=== PATIENT | male | born 1945 | race Caucasian/White ===

== ENCOUNTER → 2018-03-24 | Outpatient (CLI) | payer MEDICARE, OTHER ==
[~2018-03-24] MED LIST: ACET325 PO; AMIO200 PO; AMLO5 PO; ASPI325 PO; Atenolol50 MG PO; Coreg12.5 MG PO; Depo-Testo100 MG/1 M; Depo-Testos200 MG/ML IM; ENOX100I SQ; HYDACE10B PO; LOSA25 PO; LOSARTAN-HCTZ1 EAC1 PO; METO100ER PO; METO50ER PO; OMEP20ER PO; Omeprazole20 M1 PO; PIROXICAM PO; PRAV20 PO; Pravachol80 MG PO; Pravastatin Sod40 MG PO; Prilosec20 MG PO; TESTOSTERO200 MG/1 M INJ; TESTOSTERON CYP; WARF4; WARF5 PO
== END | disposition home or self-care (01) ==
LOC: LAB SHORT 10:50 → PLD 10:50
DX: D04.4 Carcinoma in situ of skin of scalp and neck (principal); L81.4 Other melanin hyperpigmentation
CPT/HCPCS: 88305

== ENCOUNTER 2018-10-02 11:42 | Day surgery (SDC) | payer MEDICARE, OTHER ==
[~2018-10-02] VITALS: Ht 182.9 cm; Wt 106.8 kg
[2018-10-02] MEDS ORDERED: Testostero100 MG/1 M IM (12:17)
--- NOTE | 2018-10-02 16:08 | NUR ---
10/02/18 1601 Kavita Woo OPA 10 WAS PLACED WITHOUT DIFFICULTY
--- NOTE | 2018-10-02 16:09 | NUR ---
10/02/18 1609 Kavita Woo LATE ENTRY----DISCUSSION WAS HAD WITH PATIENT AND NURSE SEDATION WAS AN OPTION AND DISCUSSED THIS WITH HIM. ALL HIS QUESTIONS WERE ANSWERED AND PATIENT CHOSE NURSE SEDATION. DR VARGAS DISCUSSED THIS WITH ME AND CASE PROCEEDED WITH RN SEDATION
== END 2018-10-02 14:12 | disposition home or self-care (01) ==
LOC: ORSCSDS 11:42
PROVIDERS: Internal Medicine Gastroenterology
PROC: 0DBL8ZX Excision of Transverse Colon, Via Natural or Artificial Opening Endoscopic, Diagnostic (ICD-10-PCS; principal; 2018-10-02 13:00)
DX: Z12.11 Encounter for screening for malignant neoplasm of colon (principal); Z86.010 Personal history of colon polyps; D12.3 Benign neoplasm of transverse colon; K57.30 Diverticulosis of large intestine without perforation or abscess without bleeding; K64.8 Other hemorrhoids; I10 Essential (primary) hypertension; G47.33 Obstructive sleep apnea (adult) (pediatric); Z87.891 Personal history of nicotine dependence; I25.10 Atherosclerotic heart disease of native coronary artery without angina pectoris; Z79.899 Other long term (current) drug therapy
CPT/HCPCS: 88305; J7120

== ENCOUNTER → 2021-01-02 | Outpatient (CLI) | payer MEDICARE, BC ==
[~2021-01-02] MED LIST changes: +AMLO10 PO; +CARV25 PO; +Testostero100 MG/1 M IM
== END | disposition home or self-care (01) ==
LOC: LAB 10:59 → LAB SHORT 10:59
DX: L82.0 Inflamed seborrheic keratosis (principal); L81.4 Other melanin hyperpigmentation
CPT/HCPCS: 88305

== ENCOUNTER 2021-01-31 08:41 | Day surgery (SDC) | payer MEDICARE, BC ==
[~2021-01-31] VITALS: Ht 182.9 cm; Wt 107.5 kg
[~2021-01-31 08:41] MED LIST changes: -AMLO10 PO; -CARV25 PO
[2021-01-31] MEDS ORDERED: AMLO10 PO (09:00)
[2021-01-31] MEDS ORDERED: CARV25 PO (09:00)
--- NOTE | 2021-01-31 09:11 | NUR ---
01/31/21 0911 Kelly Hendrickson TETRACAINE DROP INSERTED IN RIGHT EYE AT 0856. SHANIQUAETT INSERTED IN RIGHT EYE AT 0900.
== END 2021-01-31 10:50 | disposition home or self-care (01) ==
LOC: ORSCSDS 08:41
PROVIDERS: Ophthalmology
PROC: 08RJ3JZ Replacement of Right Lens with Synthetic Substitute, Percutaneous Approach (ICD-10-PCS; principal; 2021-01-31 10:00)
DX: H25.11 Age-related nuclear cataract, right eye (principal); I10 Essential (primary) hypertension; E78.00 Pure hypercholesterolemia, unspecified; Z79.899 Other long term (current) drug therapy
CPT/HCPCS: J2001; J2250; J3010; J3301; J7040; V2632

== ENCOUNTER → 2021-02-01 | Outpatient (CLI) | payer MEDICARE, BC ==
[~2021-02-01] MED LIST changes: +AMLO10 PO; +CARV25 PO
== END | disposition home or self-care (01) ==
LOC: LAB 14:36 → LAB SHORT 14:36
DX: D09 Carcinoma in situ of other and unspecified sites (principal)
CPT/HCPCS: 88305

== ENCOUNTER 2021-03-23 09:42 | Day surgery (SDC) | payer MEDICARE, BC ==
[~2021-03-23] VITALS: Ht 182.9 cm; Wt 105.4 kg
--- NOTE | 2021-03-23 10:21 | NUR ---
03/23/21 1021 Lei mariano FIRST IV IN RIGHT HAND MISSED SECOND IV IN RIGHT AC WORKED
--- NOTE | 2021-03-23 11:38 | NUR ---
03/23/21 Tamar8 Marci Chacon SIMETHICONE USED DURING PROCEDURE.
== END 2021-03-23 12:43 | disposition home or self-care (01) ==
LOC: ORSCSDS 09:42
PROVIDERS: Internal Medicine Gastroenterology
PROC: 0DBM8ZX Excision of Descending Colon, Via Natural or Artificial Opening Endoscopic, Diagnostic (ICD-10-PCS; principal; 2021-03-23 11:15)
PROC: 0DBH8ZX Excision of Cecum, Via Natural or Artificial Opening Endoscopic, Diagnostic (ICD-10-PCS; principal; 2021-03-23 11:15)
DX: Z12.11 Encounter for screening for malignant neoplasm of colon (principal); Z86.010 Personal history of colon polyps; D12.0 Benign neoplasm of cecum; D12.4 Benign neoplasm of descending colon; K57.30 Diverticulosis of large intestine without perforation or abscess without bleeding; K64.8 Other hemorrhoids; I10 Essential (primary) hypertension; E78.5 Hyperlipidemia, unspecified; I48.0 Paroxysmal atrial fibrillation; G47.33 Obstructive sleep apnea (adult) (pediatric); Z87.891 Personal history of nicotine dependence; Z79.899 Other long term (current) drug therapy
CPT/HCPCS: 88305; J2704; J7120

== ENCOUNTER → 2022-07-29 | Outpatient (CLI) | payer MEDICARE, BC ==
[2022-07-29 15:18] LABS: Influenza A, PCR NEGATIVE (NEGATIVE); Influenza B, PCR NEGATIVE (NEGATIVE); SARS-Cov-2 (COVID-19) PCR, MMC NEGATIVE (NEGATIVE)
[2022-07-29 15:19] LABS: Resp Syncytial Virus, PCR POSITIVE (NEGATIVE)
== END | disposition home or self-care (01) ==
LOC: LAB SHORT 11:57
PROVIDERS: Hospitalist
DX: R06.02 Shortness of breath (principal)
CPT/HCPCS: 0241U

== ENCOUNTER → 2023-01-02 | Outpatient (CLI) | payer MEDICARE, BC | END | disposition home or self-care (01) | LOC: LAB SHORT 11:29 → PLD 11:29 | DX: K13.0 Diseases of lips (principal); L57.0 Actinic keratosis | CPT/HCPCS: 88305 ==

== ENCOUNTER 2023-04-08 07:03 | Day surgery (SDC) | payer MEDICARE, BC ==
[~2023-04-08] VITALS: Ht 182.9 cm; Wt 109.0 kg
[2023-04-08] VITALS (7 sets, daily range): BP systolic 119–189; BP diastolic 53–106
[~2023-04-08 07:03] MED LIST changes: +CLOP75 PO; +Flovent Disku100 MCG IH; +PANT20 PO; +STIOLTO RESPIMAT4 G1 INH
--- NOTE | 2023-04-08 10:45 | NUR ---
PT AMB TO THE BATHROOM /C SBA. TOLERATED WELL. -BLEEDING OR SWELLING L GROIN AREA.
--- NOTE | 2023-04-08 11:30 | NUR ---
PT AND VERBALIZED UNDERSTANDING OF WRITTEN AND VERBAL D/C INST. IV REMOVED. PT TAKEN OUT OF THE HRT CENTER VIA W/C.
== END 2023-04-08 11:45 | disposition home or self-care (01) ==
LOC: MHTC 07:03
DX: I70.223 Atherosclerosis of native arteries of extremities with rest pain, bilateral legs (principal); I10 Essential (primary) hypertension; I35.0 Nonrheumatic aortic (valve) stenosis; E78.5 Hyperlipidemia, unspecified; Z87.891 Personal history of nicotine dependence; Z88.5 Allergy status to narcotic agent
CPT/HCPCS: 37224; 37228; 37232; 75625; 75716; 75774; 76937; 99152; 99153; C1725; C1760; C1769; C1887; C1894; J1644; J2250; J3010; J7030; J7050; Q9967

== ENCOUNTER 2023-06-10 06:56 | Day surgery (SDC) | payer MEDICARE, BC ==
[~2023-06-10] VITALS: Ht 182.9 cm; Wt 104.0 kg
[2023-06-10] VITALS (9 sets, daily range): BP systolic 110–191; BP diastolic 61–101
--- NOTE | 2023-06-10 13:03 | NUR ---
PT AND S/O VERBALIZES UNDERSTANDING WRITTEN VERBAL INSTRUCTIONS. DENIES QUESTIONS. PT R FEMORAL SITE AND L PEDAL SITE REMAIN C/D/I, NO BLEEDING NOTED. VSS. NADN. PT DRESSES SELF WITHOUT DIFF. PT DC TO HOME VIA WC BY S/O
== END 2023-06-10 13:05 | disposition home or self-care (01) ==
LOC: MHTC 06:56
DX: I70.223 Atherosclerosis of native arteries of extremities with rest pain, bilateral legs (principal); I10 Essential (primary) hypertension; E78.5 Hyperlipidemia, unspecified; I35.0 Nonrheumatic aortic (valve) stenosis; K21.9 Gastro-esophageal reflux disease without esophagitis; E78.00 Pure hypercholesterolemia, unspecified; I48.0 Paroxysmal atrial fibrillation; Z87.891 Personal history of nicotine dependence
CPT/HCPCS: 37224; 37228; 37232; 75625; 75716; 75774; 76937; 99152; 99153; C1725; C1760; C1769; C1887; C1894; J0360; J1644; J2250; J3010; J7030; J7050; Q9967

== ENCOUNTER 2023-07-01 06:59 | Day surgery (SDC) | payer MEDICARE, BC ==
[2023-07-01] VITALS (8 sets, daily range): BP systolic 129–168; BP diastolic 76–98
[~2023-07-01] VITALS: Ht 182.9 cm; Wt 106.8 kg
[~2023-07-01 06:59] MED LIST changes: +DEPO-TESTO200 MG/11 INJ; +Flovent Disku100 MCG INH
--- NOTE | 2023-07-01 09:35 | NUR ---
PT BACK TO RECOVERY ROOM VIA BED AFTER PROCEDURE. AWAKE AND ALERT, CURRENTLY DENIES ANY PAIN OR DISCOMFORT. RIGHT GROIN SITE AND LEFT PT SITE SOFT AND NON-TENDER. NO BLEEDING OR SWELLING NOTED AT EITHER SITE. CALL LIGHT IN REACH, VSS.
--- NOTE | 2023-07-01 10:08 | NUR ---
PT EATING BREAKFAST, CONTINUES TO DENY ANY PAIN OR DISCOMFORT. VSS, CALL LIGHT IN REACH.
--- NOTE | 2023-07-01 11:14 | NUR ---
DR ANN AT BEDSIDE SPEAKING WITH PT AND FAMILY ABOUT PROCEDURE RESULTS AND PLAN OF FUTURE CARE AND NEED FOR POSSIBLE PERIPHERAL VASCULAR BYPASS SURGERY.
--- NOTE | 2023-07-01 12:03 | NUR ---
IV DC'D, CATH INTACT. PT AND SPOUSE GIVEN DC INSTRUCTIONS AND FOLLOW UP INFO, VERBALIZED UNDERSTANDING. PT OUT TO CAR VIA WHEELCHAIR, SPOUSE IS DRIVING PT HOME.
== END 2023-07-01 12:00 | disposition home or self-care (01) ==
LOC: MHTC 06:59
DX: I70.223 Atherosclerosis of native arteries of extremities with rest pain, bilateral legs (principal); I10 Essential (primary) hypertension; E78.5 Hyperlipidemia, unspecified; I35.0 Nonrheumatic aortic (valve) stenosis; Z87.891 Personal history of nicotine dependence; I48.0 Paroxysmal atrial fibrillation
CPT/HCPCS: 36247; 75625; 75716; 75774; 76937; 99152; 99153; C1760; C1769; C1887; C1894; J1644; J2250; J3010; J7030; J7050; Q9967

== ENCOUNTER → 2023-09-10 | Outpatient (CLI) | payer MEDICARE, BC | LOC: LAB 12:26 → LAB SHORT 12:26 | DX: D04.39 Carcinoma in situ of skin of other parts of face (principal) | CPT/HCPCS: 88305 ==

== ENCOUNTER → 2024-04-08 | Outpatient (CLI) | payer MEDICARE, BC ==
[2024-04-08 15:24] LABS: BASOPHILS ABSOLUTE AUTO 0.03 K/mm3 (0.00-0.23); BASOPHILS PERCENT AUTO 0 % (0-2); EOSINOPHILS ABSOLUTE AUTO 0.09 K/mm3 (0.00-0.68); EOSINOPHILS PERCENT AUTO 1 % (0-6); Hematocrit 49.9 % (37.0-53.0); Hemoglobin 15.6 g/dL (13.5-17.5); IMMATURE GRAN ABSOLUTE AUTO 0.02 K/mm3 (0.00-0.10); IMMATURE GRAN PERCENT AUTO 0 % (0-1); LYMPHOCYTES ABSOLUTE AUTO 1.04 K/mm3 (0.84-5.20); LYMPHOCYTES PERCENT AUTO 13 % (21-46); MONOCYTES ABSOLUTE AUTO 0.73 K/mm3 (0.16-1.47); MONOCYTES PERCENT AUTO 9 % (4-13); Mean Corpuscular HGB 25.5 pg (26.0-34.0); Mean Corpuscular HGB Conc 31.3 g/dL (31.5-36.5); Mean Corpuscular Volume 82 fL (80-100); Mean Platelet Volume 9.6 fL (9.1-12.4); NEUTROPHILS ABSOLUTE AUTO 6.14 K/mm3 (1.96-9.15); NEUTROPHILS PERCENT AUTO 76 % (41-73); Platelet Count 184 K/mm3 (150-400); RDW Coefficient Variation 16.2 % (11.7-14.2); RDW Standard Deviation 46.3 fL (35.1-46.3); Red Blood Cell Count 6.11 M/mm3 (4.30-5.90); White Blood Cell Count 8.05 K/mm3 (4.00-11.30)
[2024-04-08 16:00] LABS: Albumin, Blood 3.6 g/dL (3.4-5.0); Bilirubin, Total 0.7 mg/dL (0.1-1.0); Bun/Creatinine Ratio 22.5 (12.0-20.0); Creatinine, Blood 1.29 mg/dL (0.60-1.20); Globulin, Blood 3.6 g/dL (2.2-4.0); Potassium, Blood 4.9 mmol/L (3.5-5.5); Total Protein, Blood 7.2 g/dL (6.4-8.2)
== END | disposition home or self-care (01) ==
LOC: LAB 13:34 → LAB SHORT 13:34
PROVIDERS: Hospitalist
DX: R35.0 Frequency of micturition (principal)
CPT/HCPCS: 80053; 85025

== ENCOUNTER 2024-05-27 20:52 | Inpatient (IN) | payer MEDICARE, BC ==
[~2024-05-27] VITALS: Ht 182.9 cm; Wt 101.8 kg
[2024-05-27 21:10] LABS: BASOPHILS ABSOLUTE AUTO 0.04 K/mm3 (0.00-0.23); BASOPHILS PERCENT AUTO 0 % (0-2); EOSINOPHILS ABSOLUTE AUTO 0.14 K/mm3 (0.00-0.68); EOSINOPHILS PERCENT AUTO 1 % (0-6); Hematocrit 50.8 % (37.0-53.0); Hemoglobin 15.8 g/dL (13.5-17.5); IMMATURE GRAN ABSOLUTE AUTO 0.05 K/mm3 (0.00-0.10); IMMATURE GRAN PERCENT AUTO 0 % (0-1); LYMPHOCYTES ABSOLUTE AUTO 0.98 K/mm3 (0.84-5.20); LYMPHOCYTES PERCENT AUTO 8 % (21-46); MONOCYTES ABSOLUTE AUTO 0.95 K/mm3 (0.16-1.47); MONOCYTES PERCENT AUTO 8 % (4-13); Mean Corpuscular HGB 25.4 pg (26.0-34.0); Mean Corpuscular HGB Conc 31.1 g/dL (31.5-36.5); Mean Corpuscular Volume 82 fL (80-100); Mean Platelet Volume 9.5 fL (9.1-12.4); NEUTROPHILS ABSOLUTE AUTO 9.94 K/mm3 (1.96-9.15); NEUTROPHILS PERCENT AUTO 82 % (41-73); Platelet Count 226 K/mm3 (150-400); RDW Coefficient Variation 15.3 % (11.7-14.2); RDW Standard Deviation 44.7 fL (35.1-46.3); Red Blood Cell Count 6.23 M/mm3 (4.30-5.90)
[2024-05-27 21:13] LABS: Calcium, Ionized (POC) 1.13 mmol/L (1.10-1.46); Chloride (POC) 102 mmol/L (98-108); Creatinine (POC) 1.5 mg/dL (0.8-1.3); Glucose (ISTAT POC) 120 mg/dL (70-99); Potassium (POC) 4.7 mmol/L (3.5-5.5); Sodium (POC) 139 mmol/L (135-148); Total CO2 (POC) 28 mmol/L (21-32)
[2024-05-27 21:37] LABS: Albumin, Blood 3.6 g/dL (3.4-5.0); Albumin/Globulin Ratio 0.8 (0.8-1.8); Bilirubin, Total 0.7 mg/dL (0.1-1.0); Bun/Creatinine Ratio 25.4 (12.0-20.0); Calcium, Blood 9.4 mg/dL (8.5-10.1); Creatinine, Blood 1.3 mg/dL (0.60-1.20); Globulin, Blood 4.3 g/dL (2.2-4.0); Magnesium, Blood 2.1 mg/dL (1.6-2.4); Potassium, Blood 4.6 mmol/L (3.5-5.5); Total Protein, Blood 7.9 g/dL (6.4-8.2)
[2024-05-27 21:54] LABS: Influenza A, PCR NEGATIVE (NEGATIVE); Influenza B, PCR NEGATIVE (NEGATIVE); Resp Syncytial Virus, PCR NEGATIVE (NEGATIVE); SARS-Cov-2 (COVID-19) PCR, MMC NEGATIVE (NEGATIVE)
[2024-05-27] MEDS ORDERED: Furosemide 10 MG/ML 4ML Vial IV ONE (22:00)
[2024-05-27] MEDS ORDERED: Diltiazem HCl 5 MG / ML 5ML Vial IV ONE (23:25)
[2024-05-28] MEDS ORDERED: Diltiazem HCl 5 MG / ML 5ML Vial IV ONE (00:20)
[2024-05-28] MEDS ORDERED: FLU VACC TS2024-25(6MOS UP)/PF 45 MCG/0.5 ML SYRINGE IM ONE (02:25)
[2024-05-28 02:50] LABS: Thyroid Stimulating Hormone 1.39 uIU/mL (0.360-4.800)
[2024-05-28 03:40] VITALS: BP 150/118
[2024-05-28] MEDS ORDERED: Ipratropium/Albuterol SulF 2.5-0.5MG/3 ML Amp INH SCH (03:45)
[2024-05-28] MEDS ORDERED: Albuterol 2.5 MG/3 ML VIAL INH PRN (03:45)
[2024-05-28] MEDS ORDERED: CefTRIAXone Sodium 1,000 MG in NS 100 ML IV SCH (03:55)
[2024-05-28] MEDS ORDERED: ELIQUIS5 M2 PO (03:56)
[2024-05-28] MEDS ORDERED: Azithromycin 500 MG in NS 250 ML IV SCH (03:58)
[2024-05-28 05:32] LABS: Base Excess Venous 6.6 mmol/L; Bicarbonate Venous 29.6 mmol/L (24.0-30.0); PCO2 Venous 43.6 mmHg (38-42); pH Blood Venous 7.45 (7.34-7.37)
--- NOTE | 2024-05-28 06:23 | NUR ---
SHIFT SUMMARY PATIENT ARRIVED TO PCU 13 VIA STRETCHER. HE IS ALERT AND ORIENTED X4, WAS ABLE TO SELF TRANSFER TO THE BED WITH MINIMAL ASSISTANCE. SHORTLY AFTER ARRIVAL PATIENT ASKED FOR A BREAK FROM THE BIPAP, PATIENT DID NOT MAINTAIN SPO2 >90% DESPITE PLACING PATIENT ON 15 LITERS HIGH FLOW NASAL CANULA, HE WAS PROMPTLY PLACED BACK ON BIPAP. PATIENT TOLERATING BIPAP WELL. PATIENT HAS BEEN AFIB ON TELE 110-120'S, PLACED ON A CARDIZEM DRIP PER EMAR. WILL CONTINUE TO MONITOR. CALL LIGHT WITHIN REACH.
[2024-05-28 07:34] VITALS: BP 141/79
[2024-05-28] MEDS ORDERED: HydrALAZINE HCl 20 MG / ML 1ML Vial IV PRN (08:15)
[2024-05-28] MEDS ORDERED: Mometasone/Formoterol MDI 200/5 mcg 13 GM INH SCH (08:20)
[2024-05-28] MEDS ORDERED: Prochlorperazine Edisylate 10 mg Vial IV PRN (08:20)
[2024-05-28] MEDS ORDERED: Zolpidem Tartrate 5 MG Tab PO PRN (08:20)
[2024-05-28] MEDS ORDERED: Docusate Sodium/Senna 1 Tab PO PRN (08:20)
[2024-05-28] MEDS ORDERED: MethylPREDNISolone Sod Succ 125 MG Vial IV SCH (08:25)
[2024-05-28] MEDS ORDERED: GuaiFENesin 600 MG TabCR PO SCH (09:00)
[2024-05-28] MEDS ORDERED: Lactobacil 2-S.Thermo-Bifido 1 1 Cap PO SCH ×2 (09:00)
[2024-05-28] MEDS ORDERED: Enoxaparin 40 MG/0.4 ML SYR SC SCH (09:00)
[2024-05-28 13:39] VITALS: BP 130/93
[2024-05-28 15:40] VITALS: BP 151/98
[2024-05-28] MEDS ORDERED: Furosemide 10 MG/ML 4ML Vial IV ONE (18:00)
--- NOTE | 2024-05-28 18:14 | NUR ---
SHIFT SUMMARY PT A&OX4. SP02>90% ON BIPAP 31/05 50% FI02. END OF SHIFT PT DID NOT TOLERATE BEING OF BIPAP. PLACED ON 15L HIFLO TO EAT DINNER AND SATTING HIGH 70'S LOW 80'S. MD GIORDANO IN ROOM THIS EVENING TO CONSULT. CONDOM CATH DRAINING YELLOW URINE TO GRAVITY. NO BM THIS SHIFT. PT DENIES PAIN. IN ROOM MOST OF SHIFT. BROUGHT IN HOME VPAP, PLACED IN CLOSET. PT WATCHING TV WITH IN ROOM, CALL LIGHT IN REACH.
[2024-05-28 21:42] VITALS: BP 134/90
[2024-05-28 23:31] VITALS: BP 119/87
[2024-05-29 04:42] VITALS: BP 140/83
[2024-05-29 05:35] LABS: BASOPHILS PERCENT AUTO 0 % (0-2); EOSINOPHILS PERCENT AUTO 0 % (0-6); Hematocrit 46.3 % (37.0-53.0); Hemoglobin 14.8 g/dL (13.5-17.5); IMMATURE GRAN ABSOLUTE AUTO 0.04 K/mm3 (0.00-0.10); IMMATURE GRAN PERCENT AUTO 0 % (0-1); LYMPHOCYTES ABSOLUTE AUTO 0.39 K/mm3 (0.84-5.20); LYMPHOCYTES PERCENT AUTO 4 % (21-46); MONOCYTES ABSOLUTE AUTO 0.19 K/mm3 (0.16-1.47); MONOCYTES PERCENT AUTO 2 % (4-13); Mean Corpuscular HGB 25.6 pg (26.0-34.0); Mean Corpuscular Volume 80 fL (80-100); Mean Platelet Volume 10.3 fL (9.1-12.4); NEUTROPHILS ABSOLUTE AUTO 8.32 K/mm3 (1.96-9.15); NEUTROPHILS PERCENT AUTO 93 % (41-73); Platelet Count 211 K/mm3 (150-400); RDW Coefficient Variation 15.1 % (11.7-14.2); RDW Standard Deviation 43.7 fL (35.1-46.3); Red Blood Cell Count 5.79 M/mm3 (4.30-5.90); White Blood Cell Count 8.94 K/mm3 (4.00-11.30)
--- NOTE | 2024-05-29 06:07 | NUR ---
SHIFT SUMMARY PATIENT ALERT AND ORIENTED X4. HAD NO COMPLAINTS OF PAIN. CONTINUES TO BE BIPAP DEPENDENT WITH SPO2 DROPPING TO 86 ON 15 LITERS O2 VIA HIGH FLOW NASAL CANULA. PATIENT CONTINUES ON CARDIZEM DRIP AT 5 MG/HR, AFIB LOW 100'S ON TELE. BLOOD PRESSURE STABLE. NO ACUTE ISSUES NOTED OVERNIGHT. WILL CONTINUE TO MONITOR. CALL LIGHT WITHIN REACH.
[2024-05-29 06:31] LABS: Albumin, Blood 3.1 g/dL (3.4-5.0); Albumin/Globulin Ratio 0.7 (0.8-1.8); Bilirubin, Total 0.7 mg/dL (0.1-1.0); Bun/Creatinine Ratio 34.2 (12.0-20.0); C-REACTIVE PROTEIN, EXT RANGE 10.8 mg/dL (0.000-0.300); Creatinine, Blood 1.2 mg/dL (0.60-1.20); Globulin, Blood 4.2 g/dL (2.2-4.0); Magnesium, Blood 2.3 mg/dL (1.6-2.4); Phosphorus, Blood 3.8 mg/dL (2.5-4.9); Potassium, Blood 3.8 mmol/L (3.5-5.5); Total Protein, Blood 7.3 g/dL (6.4-8.2)
--- NOTE | 2024-05-29 07:10 | NUR ---
ASSUMED CARE AT 0700 AND RECEIVED REPORT FROM UPHOLSTERY HANDLER RN. PT RESTING COMFORTABLY IN BED. ALERT AND ORIENTED. BIPAP IN PLACE ON 31/05 50%. VITALS STABLE. SCDS IN PLACE. CONDOM CATHETER IN PLACE. CARDIZEM DRIP RUNNING AT 5MG/HR. PT DENIES CHEST PAIN/PRESSURE.
[2024-05-29 08:02] VITALS: BP 132/92
[2024-05-29] MEDS ORDERED: Furosemide 10 MG/ML 4ML Vial IV SCH ×2 (09:00)
[2024-05-29 11:32] VITALS: BP 128/70
[2024-05-29 15:30] VITALS: BP 137/91
[2024-05-29] MEDS ORDERED: MethylPREDNISolone Sod Succ 40 MG VIAL IV SCH (16:00)
[2024-05-29] MEDS ORDERED: dilTIAZem HCL 60 MG TAB PO SCH (16:30)
--- NOTE | 2024-05-29 18:10 | NUR ---
SHIFT SUMMARY PT REMAINED ALERT AND ORIENTED THROUGHOUT SHIFT. HR AND BP STABLE. WAS ABLE TO TRANSITION PT TO 15L HIGH FLOW NC FOR MEALS AND MAINTAINING 02 IN LOW 90'S/HIGH 80S. PT USES BIPAP WHEN NOT EATING MEALS ON 07/25 45%. NO ACUTE EVENTS THIS SHIFT. SWITCHED FROM CARDIZEM DRIP TO PO PER DR GROSSMAN. WILL CONTINUE TO MONITOR AND GIVE REPORT TO ONCOMING RN.
[2024-05-29 19:59] VITALS: BP 129/83
[2024-05-29 23:20] VITALS: BP 122/82
[2024-05-30 03:18] VITALS: BP 131/96
--- NOTE | 2024-05-30 06:16 | NUR ---
Shift Summary- Michele had a good night. At the beginning of shift he was using the Hi-Andres Nasal Cannula at 14L with SPO2 above 88%. For bedtime he switched over to the Bipap- 12/8 45%, with adequate SPO2 readings, again above 88%, typically around 92%. Around 4am he was awake for the day, back on the nasal cannula, at 15L as he was getting up, washing his face, sitting on the side of the bed, etc. SPO2 was above 88% with the activity involved. He has complained of no BM since being in the hospital- but is not ready for bowel care just yet, though it was discussed with him. He hopes today is the day. No other needs at this time.
[2024-05-30 06:30] LABS: Hematocrit 49.2 % (37.0-53.0); Hemoglobin 15.5 g/dL (13.5-17.5)
[2024-05-30 07:01] LABS: Magnesium, Blood 2.6 mg/dL (1.6-2.4)
[2024-05-30 07:02] LABS: Bun/Creatinine Ratio 41.9 (12.0-20.0); Calcium, Blood 8.5 mg/dL (8.5-10.1); Creatinine, Blood 1.17 mg/dL (0.60-1.20); Phosphorus, Blood 3.6 mg/dL (2.5-4.9); Potassium, Blood 3.6 mmol/L (3.5-5.5)
[2024-05-30 07:53] VITALS: BP 136/85
[2024-05-30 11:58] VITALS: BP 127/91
[2024-05-30 16:49] VITALS: BP 138/93
--- NOTE | 2024-05-30 17:53 | NUR ---
SHIFT SUMMARY PT A&OX4. SP02 >90% ON 8L HIFLO. PT DID NOT USE BIPAP THIS SHIFT. STATES HE CAN FEEL HIS BREATHING 'GETTING BETTER'. SOME TACHYPENIA W/ EXERTION. TELEMTRY SHOWS AFIB, HR MOSTLY 90'S-120'S. DENIES PAIN. IMAGING IN ROOM FOR XRAY THIS AM, SEE RESULTS. PT USED URINAL TO VOID. CONCERNS ABOUT NOT HAVING A BM SINCE FRIDAY. REQUESTING STOOL SOFTNER THIS EVENING. PT ABLE TO AMBULATE TO CHAIR MULTIPLE TIMES THIS SHIFT, SAT UP ON SIDE OF BED FOR MEALS. IN ROOM MOST OF SHIFT. CURRENTLY SITTING IN CHAIR EATING DINNER, CALL LIGHT IN REACH.
[2024-05-30 20:28] VITALS: BP 136/94
[2024-05-30] MEDS ORDERED: NS 250 ML IV PRN (22:30)
[2024-05-31] VITALS (8 sets, daily range): BP systolic 123–139; BP diastolic 69–117
[2024-05-31 05:02] LABS: Hematocrit 46.8 % (37.0-53.0); Hemoglobin 14.8 g/dL (13.5-17.5)
[2024-05-31 05:19] LABS: Magnesium, Blood 2.6 mg/dL (1.6-2.4)
[2024-05-31 05:20] LABS: Bun/Creatinine Ratio 44.4 (12.0-20.0); Calcium, Blood 8.2 mg/dL (8.5-10.1); Creatinine, Blood 1.17 mg/dL (0.60-1.20); Phosphorus, Blood 3.2 mg/dL (2.5-4.9); Potassium, Blood 3.9 mmol/L (3.5-5.5)
--- NOTE | 2024-05-31 05:49 | NUR ---
SHIFT SUMMARY PT IS A&OX4, PLEASANT AND COOPERATIVE. VSS ON 8L HIGH FLOW NC, BIPAP WHILE ASLEEP. PER TELEMETRY PT IS IN A-FIB 90'S-110'S. DENIES PAIN. PT TOLERATING A HEART HEALTHY DIET. PT USING URINAL IN BED INDEPENDENTLY. VOIDING ADEQUATE AMOUNTS OF STRAW COLORED URINE. NO BM THIS SHIFT. LAST BM WAS ANESTHESIOLOGY TEACHER. BED IN LOWEST POSITION, CALL LIGHT WITHIN REACH.
[2024-05-31] MEDS ORDERED: Metolazone 5 MG Tab PO ONE (08:10)
--- NOTE | 2024-05-31 17:45 | NUR ---
SHIFT SUMMARY PT A&O X 4, OBEYS COMMANDS AND ABLE TO MAKE NEEDS KNOWN, MOVES ALL EXTREMITIES EQUALLY, WALKED TO THE BATHROOM SBA TO HELP WITH CORD MANAGMENT. ON CONTINOUS SPO2,O2 TITRATED DOWN FROM 8L O2 TO 6L O2, SPO2 GREATER THAN 90% ON 6L O2 VIA NC, SOB WITH ACTIVITY, NO SIGNS OF RESPRITORY DISTRESS. CONTINOUS CARDIAC MONTIORING HR 100-110'S, BP ELEVATED AND MEDICATED PER EMAR. PT CONTINENT OF URINE, IND USING URINAL. PT HAD BM THIS AFTERNOON. CALL LIGHT IN REACH, BED LOWEST POSTION. CAME TO BEDSIDE. DR. RAMOS ROUNDED ON PT, PT VOICED CONCERN ABOUT HOME CPAP HAVING TO MUCH PRESSURE, ADDRESSED CONCERN WITH PT.
[2024-05-31] MEDS ORDERED: MethylPREDNISolone Sod Succ 40 MG VIAL IV SCH (21:00)
[2024-06-01 04:31] LABS: Hematocrit 50.4 % (37.0-53.0); Hemoglobin 15.9 g/dL (13.5-17.5); Mean Corpuscular HGB 25.4 pg (26.0-34.0); Mean Corpuscular HGB Conc 31.5 g/dL (31.5-36.5); Mean Corpuscular Volume 81 fL (80-100); Mean Platelet Volume 9.4 fL (9.1-12.4); Platelet Count 198 K/mm3 (150-400); RDW Coefficient Variation 14.6 % (11.7-14.2); Red Blood Cell Count 6.26 M/mm3 (4.30-5.90); White Blood Cell Count 10.51 K/mm3 (4.00-11.30)
[2024-06-01 04:50] LABS: Bun/Creatinine Ratio 37.7 (12.0-20.0); Calcium, Blood 8.6 mg/dL (8.5-10.1); Creatinine, Blood 1.22 mg/dL (0.60-1.20); Magnesium, Blood 2.9 mg/dL (1.6-2.4); Phosphorus, Blood 3.1 mg/dL (2.5-4.9); Potassium, Blood 4.1 mmol/L (3.5-5.5)
[2024-06-01 04:59] VITALS: BP 150/100
--- NOTE | 2024-06-01 05:46 | NUR ---
SHIFT SUMMARY PATIENT ALERT AND ORINETED X4. HAD NO COMPLAINTS OF PAIN OR SHORTNESS OF BREATH. WORE BIPAP WHILE SLEEPING SETTINGS /8 30% FIO2, WAS TITRATED FROM 6 TO 4 LITERS O2 VIA NASAL CANULA WHILE AWAKE WITH SPO2 >90%. VITAL SIGNS STABLE, AFIB ON TELE. NO ACUTE ISSUES NOTED OVERNIGHT. WILL CONTINUE TO MONITOR. CALL LIGHT WITHIN REACH.
[2024-06-01 08:21] VITALS: BP 128/86
[2024-06-01 11:14] VITALS: BP 126/91
[2024-06-01 11:56] LABS: CYCLIC CITRULLINATED PEP,IGG/A 5 Units (0-19)
[2024-06-01 13:24] LABS: ANTI-NUCLEAR AB ANA,IGG ELISA None Detected (None Detected)
[2024-06-01 17:18] VITALS: BP 134/89
--- NOTE | 2024-06-01 18:43 | NUR ---
PT HAS BEEN RESTING WELL T/O THE DAY. HE HAS BEEN UP TO BEDSIDE CHAIR AND BED T/O THE DAY. HE HAS BEEN BETWEEN 4-6L OF 02 T/O THE DAY. VSS. DENIES SOB OR CP T/O DAY. HE IS ALERT AND ORIENTED X4. HE IS ABLE TO USE CALL LIGHT TO MAKE NEEDS KNOWN.
[2024-06-01 19:20] LABS: GBM, IGG MULTIPLEX BEAD ASSAY 0 AU/mL (0-19)
[2024-06-01 19:58] VITALS: BP 128/80
[2024-06-01 23:21] VITALS: BP 133/80
[2024-06-02 03:33] VITALS: BP 136/100
--- NOTE | 2024-06-02 06:18 | NUR ---
SHIFT SUMMARY PATIENT ALERT AND ORIENTED X4. HAD NO COMPLAINTS OF PAIN OR SHORTNESS OF BREATH. ON 6 LITERS O2 VIA NASAL CANULA WITH SPO2 >90%. VITAL SIGNS STABLE, CONTINUES IN AFIB 100-110'S ON TELE. NO ACUTE ISSUES NOTED OVERNIGHT. WILL CONTINUE TO MONITOR. CALL LIGHT WITHIN REACH.
[2024-06-02 07:35] VITALS: BP 145/110
[2024-06-02] MEDS ORDERED: Metoprolol Succinate 25 MG TABCR PO SCH ×2 (09:00→21:00)
[2024-06-02] MEDS ORDERED: PredniSONE 20 MG Tab PO SCH (09:00)
[2024-06-02] MEDS ORDERED: Diltiazem HCl 300 MG Cap.CD PO SCH (09:00)
[2024-06-02] MEDS ORDERED: MethylPREDNISolone Sod Succ 40 MG VIAL IV SCH (09:00)
[2024-06-02 11:56] VITALS: BP 149/103
[2024-06-02 12:48] LABS: ANCA IFA PATTERN None Detected (None Detected); ANCA IFA TITER <1:20 (<1:20)
--- NOTE | 2024-06-02 14:52 | NUR ---
UPDATE: RADHA TO PT'S ROOM THIS AFTERNOON TO TAKE HOME BIPAP FOR PRESSURE ADJUSTMENT PER PULMONOLOGY WRITTEN ORDERS.
[2024-06-02 15:49] VITALS: BP 142/91
--- NOTE | 2024-06-02 15:57 | NUR ---
LIZZARE BACK W/ PT'S HOME BIPAP. RT AT BEDSIDE, HOME MARKETING RESEARCH ANALYST W/ 6L BLEED-IN AT THIS TIME. PT C/O "INCREASED PRESSURE" AND "POPPING" IN HIS EAR. PT ABLE TO TOLERATE BIPAP <10 MINUTES. CALL TO MD RASMUSSEN. DISCUSSED POSSIBLE CAUSES; PT DENIES SINUS CONGESTION, SEASONAL ALLERGIES. PLAN TO DISCUSS W/ GAUGE AND WEIGH MACHINE OPERATOR.
--- NOTE | 2024-06-02 17:15 | NUR ---
UPDATE: DISCUSSED PT'S HOME BIPAP CONCERNS/SETTINGS W/ CONTAINER FILLER. CONTAINER FILLER STATES THAT PRESSURES WERE DECREASED FROM PRIOR SETTINGS; RECOMMENDS PT CONTINUE TO WEAR BIPAP W/ NEW SETTINGS. NO ADDITIONAL ADJUSTMENTS TO BE MADE AT THIS TIME.
--- NOTE | 2024-06-02 17:17 | NUR ---
END OF SHIFT: SEE PREVIOUS NOTES REGARDING HOME BIPAP UPDATES. PT A/OX4 T/O SHIFT, ABLE TO COMMUNICATE NEEDS W/ STAFF. HR 90-130'S, AFIB ON TELE. SBP 140'S, PT DENIES CHEST PAIN/PRESSURE. SPO2 >90% ON 6L VIA NC, HOSPITAL BIPAP & HOME BIPAP AT BEDSIDE. AFEBRILE. >1400ML OUTPUT SO FAR THIS SHIFT, NO BM'S. UP TO CHAIR FOR MOST MEALS W/ SBA. ABLE TO TAKE SHOWER TODAY. NO OTHER NEEDS AT THIS TIME. PT SITTING UP IN BED EATING DINNER. CALL LIGHT IN REACH.
[2024-06-02 22:09] VITALS: BP 151/80
[2024-06-02 23:37] VITALS: BP 146/101
[2024-06-03 05:20] VITALS: BP 147/104
--- NOTE | 2024-06-03 06:28 | NUR ---
SHIFT SUMMARY PATIENT ALERT AND ORIENTED X4. IS INDEPENDENT GETTING FROM THE BED TO THE CHAIR AND BACK. HE HAD NO COMPLAINTS OF PAIN OR SHORTNESS OF BREATH. IS CURRENTLY ON 3 LITERS O2 VIA NASAL CANULA WITH SPO2 >90%. PATIENT WORE HIS HOME BIPAP OVERNIGHT TO SLEEP. VITAL SIGNS STABLE, AFIB 100-120'S ON TELE. NO ACUTE ISSUES NOTED OVERNIGHT. WILL CONTINUE TO MONITOR. CALL LIGHT WITHIN REACH.
[2024-06-03 07:10] VITALS: BP 146/100
[2024-06-03] MEDS ORDERED: Furosemide 40 MG Tab PO SCH (09:00)
[2024-06-03] MEDS ORDERED: Metoprolol Succinate 25 MG TABCR PO SCH ×2 (09:00→21:00)
[2024-06-03 11:08] VITALS: BP 139/90
[2024-06-03 16:22] VITALS: BP 139/79
--- NOTE | 2024-06-03 17:52 | NUR ---
END OF SHIFT NOTE: NO ACUTE EVENTS THIS SHIFT. PT A/OX4, ABLE TO CALL APPROPRIATELY & COMMUNICATE NEEDS. HR 90-110'S AT REST, UP TO 130'S AT TIMES W/ ACTIVITY. AFIB ON TELE. SBP 130-140'S, DENIES CHEST PAIN/PRESSURE. SPO2 >90% ON 3-4L VIA NC, HOME BIPAP AT BEDSIDE. AFEBRILE. >1200 ML URINE OUTPUT THIS SHIFT, VOIDING INDEPENDENTLY W/ URINAL. 1 BM THIS AM. TOLERATING PO INTAKE WELL. INDEPENDENTLY REPOSITIONING IN BED, SBA FOR LINE MANAGEMENT TO CHAIR. NO OTHER NEEDS AT THIS TIME. PT SITTING UP IN BED EATING DINNER, CALL LIGHT IN REACH.
[2024-06-03 20:11] VITALS: BP 145/109
[2024-06-03] MEDS ORDERED: Doxycycline Hyclate 100 MG TAB PO SCH (21:00)
[2024-06-04 00:12] VITALS: BP 139/96
[2024-06-04 04:37] VITALS: BP 125/86
[2024-06-04 04:48] LABS: Hemoglobin 19.8 g/dL (13.5-17.5); Mean Corpuscular HGB 25.3 pg (26.0-34.0); Mean Corpuscular HGB Conc 31.8 g/dL (31.5-36.5); Mean Corpuscular Volume 79 fL (80-100); Mean Platelet Volume 10.1 fL (9.1-12.4); Platelet Count 255 K/mm3 (150-400); RDW Coefficient Variation 17.2 % (11.7-14.2); RDW Standard Deviation 41.1 fL (35.1-46.3); Red Blood Cell Count 7.83 M/mm3 (4.30-5.90); White Blood Cell Count 19.31 K/mm3 (4.00-11.30)
[2024-06-04 04:57] LABS: Hematocrit 62.2 % (37.0-53.0)
--- NOTE | 2024-06-04 04:58 | NUR ---
SHIFT SUMMARY. SHIFT HAS BEEN UNREMARKABLE. PT AOX4, PLEASANT, COOPERATIVE WITH CARE, ABLE TO MAKE NEEDS KNOWN. HAS BEEN ABLE TO REST COMFORTABLY THROUGHOUT MOST OF SHIFT. PT WORE CPAP FOR SEVERAL HOURS WHILE SLEEPING BUT THROUGHOUT MOST OF THE SHIFT HAS BEEN MAINTAINING ADEQUATE SATURATION ON 3-4 L O2 VIA NC. HAS DENIED PAIN THROUGHOUT SHIFT. BP HAS BEEN STABLE. HR HAS PRIMARILY BEEN IN THE 90s-110s RANGE THROUGHOUT SHIFT, SOME MILD ELEVATION WITH ACTIVITY. INDEPENDENT WITH URINAL, CALLS APPROPRIATELY FOR REQUIRED ASSISTANCE. OTHERWISE SHIFT HAS BEEN UNREMARKABLE. BED LOCKED IN LOWEST POSITION. CALL LIGHT LEFT WITHIN REACH. CONTINUING TO MONITOR.
[2024-06-04 05:43] LABS: Magnesium, Blood 2.8 mg/dL (1.6-2.4)
[2024-06-04 06:06] LABS: Albumin, Blood 3.4 g/dL (3.4-5.0); Anion Gap 13 mmol/L (3-11); Blood Urea Nitrogen 67 mg/dL (8-24); Bun/Creatinine Ratio 47.2 (12.0-20.0); CO2, Blood 30 mmol/L (21-32); Calcium, Blood 9.4 mg/dL (8.5-10.1); Chloride, Blood 91 mmol/L (98-108); Creatinine, Blood 1.42 mg/dL (0.60-1.20); Glomerular Filtration Rate 51 (60-); Glucose, Blood 132 mg/dL (70-99); Phosphorus, Blood 3.9 mg/dL (2.5-4.9); Potassium, Blood 4.1 mmol/L (3.5-5.5); Sodium, Blood 130 mmol/L (136-145)
[2024-06-04] MEDS ORDERED: dilTIAZem HCL 240 MG CAP.CD PO SCH (09:00)
[2024-06-04] MEDS ORDERED: Furosemide 20 MG Tab PO SCH (09:00)
[2024-06-04] MEDS ORDERED: Apixaban 5 MG Tab PO SCH (09:00)
[2024-06-04] MEDS ORDERED: Metoprolol Succinate 50 MG TABCR PO SCH (09:00)
[2024-06-04 09:43] VITALS: BP 132/94
--- NOTE | 2024-06-04 13:08 | NUR ---
UPDATE PT UP FOR WALK AROUND PCU WITH STAFF AND ON 5L NC. HR AFIB 90-100'S WHILE AT REST. HR RANGED 100-120'S WHILE WALKING WITH A VERY BRIEF TIME OF TOUCHING 130. PT REPORTED "I FEEL GOOD. I FEEL LIKE I DO WHEN AT HOME." PT ASYMPTOMATIC WITH HR. MD NOTIFIED OF PT AMBULATION AND HR.
[2024-06-04] MEDS ORDERED: DILT120ERA PO (16:25)
[2024-06-04] MEDS ORDERED: FURO20 PO (16:26)
[2024-06-04] MEDS ORDERED: DOXY100 PO (16:26)
[2024-06-04] MEDS ORDERED: METO50ER PO (16:27)
[2024-06-04] MEDS ORDERED: DELTASONE20 MG PO (16:32)
--- NOTE | 2024-06-04 17:23 | NUR ---
DISCHARGE UPDATE DISCHARGE PACKET GONE OVER WITH PT AND PT AT 1710. PT DISHCARGED AT 1723 VIA WHEELCHAR AND ON 3LNC. PT PERSONAL BELONGINGS LIKE CPAP WITH PT AT TIME OF DISCHARGE. DISCHARGE PACKET WITH PT. PT ABLE TO TRANSFER TO AND FROM WHEELCHAIR ON HIS OWN, TOLERATED WELL.
[2024-06-05] MEDS ORDERED: Pantoprazole Sodium 40 MG Tab PO SCH (06:00)
== END 2024-06-04 17:31 | disposition home or self-care (01) | DRG 871 ==
LOC: ER 20:52 → PCU 20:53
PROVIDERS: Family Medicine; Hospitalist; Internal Medicine; Internal Medicine Critical Care Medicine; Student in an Organized Health Care Education/Training Program; ADMIT Student in an Organized Health Care Education/Training Program
PROC: 5A09357 Assistance with Respiratory Ventilation, Less than 24 Consecutive Hours, Continuous Positive Airway Pressure (ICD-10-PCS; principal; 2024-05-28)
PROC: 3E03329 Introduction of Other Anti-infective into Peripheral Vein, Percutaneous Approach (ICD-10-PCS; 2024-05-28)
PROC: 5A0935A Assistance with Respiratory Ventilation, Less than 24 Consecutive Hours, High Flow/Velocity Cannula (ICD-10-PCS; 2024-05-30)
DX: A41.9 Sepsis, unspecified organism (principal); J18.9 Pneumonia, unspecified organism; J96.21 Acute and chronic respiratory failure with hypoxia; J44.1 Chronic obstructive pulmonary disease with (acute) exacerbation; J44.0 Chronic obstructive pulmonary disease with (acute) lower respiratory infection; N17.9 Acute kidney failure, unspecified; G47.33 Obstructive sleep apnea (adult) (pediatric); E78.5 Hyperlipidemia, unspecified; Z66 Do not resuscitate; E78.00 Pure hypercholesterolemia, unspecified; I35.0 Nonrheumatic aortic (valve) stenosis; I48.0 Paroxysmal atrial fibrillation; J43.9 Emphysema, unspecified; I71.20 Thoracic aortic aneurysm, without rupture, unspecified; I73.9 Peripheral vascular disease, unspecified; K21.9 Gastro-esophageal reflux disease without esophagitis; I11.0 Hypertensive heart disease with heart failure; I50.9 Heart failure, unspecified; D64.9 Anemia, unspecified; M19.90 Unspecified osteoarthritis, unspecified site; Z96.642 Presence of left artificial hip joint; Z96.651 Presence of right artificial knee joint; Z96.641 Presence of right artificial hip joint; Z88.5 Allergy status to narcotic agent; Z91.048 Other nonmedicinal substance allergy status; Z79.01 Long term (current) use of anticoagulants; Z79.899 Other long term (current) drug therapy; Q23.81 Bicuspid aortic valve; Z90.49 Acquired absence of other specified parts of digestive tract; Z98.890 Other specified postprocedural states; Z98.49 Cataract extraction status, unspecified eye; Z87.891 Personal history of nicotine dependence; Z79.02 Long term (current) use of antithrombotics/antiplatelets; Z87.19 Personal history of other diseases of the digestive system
CPT/HCPCS: 0241U; 36415; 71045; 71260; 80047; 80048; 80053; 80069; 82803; 83516; 83605; 83735; 83880; 84100; 84145; 84443; 84484; 85014; 85018; 85025; 85027; 85651; 86037; 86038; 86140; 86200; 86430; 87040; 87070; 87205; 93005; 93010; 93306; 94640; 94660; 94664; 94762; 96365; 96372; 96374-59; 96375; 96375-59; 96376; 99285-25; A9270; G0378; J0456; J0696; J1650; J1940; J2919; J7050; J7512; Q9967

== ENCOUNTER → 2024-06-09 | Outpatient (CLI) | payer MEDICARE, BC ==
[~2024-06-09] MED LIST changes: +DELTASONE20 MG PO; +DILT120ERA PO; +DOXY100 PO; +ELIQUIS5 M2 PO; +FURO20 PO
[2024-06-09 19:02] LABS: BASOPHILS ABSOLUTE AUTO 0.03 K/mm3 (0.00-0.23); BASOPHILS PERCENT AUTO 0 % (0-2); EOSINOPHILS ABSOLUTE AUTO 0.04 K/mm3 (0.00-0.68); EOSINOPHILS PERCENT AUTO 0 % (0-6); IMMATURE GRAN ABSOLUTE AUTO 0.12 K/mm3 (0.00-0.10); IMMATURE GRAN PERCENT AUTO 1 % (0-1); LYMPHOCYTES PERCENT AUTO 5 % (21-46); MONOCYTES ABSOLUTE AUTO 0.91 K/mm3 (0.16-1.47); MONOCYTES PERCENT AUTO 5 % (4-13); Mean Corpuscular HGB 25.4 pg (26.0-34.0); Mean Corpuscular HGB Conc 31.5 g/dL (31.5-36.5); Mean Corpuscular Volume 80 fL (80-100); Mean Platelet Volume 11.5 fL (9.1-12.4); NEUTROPHILS ABSOLUTE AUTO 15.55 K/mm3 (1.96-9.15); NEUTROPHILS PERCENT AUTO 89 % (41-73); Platelet Count 272 K/mm3 (150-400); RDW Coefficient Variation 15.4 % (11.7-14.2); RDW Standard Deviation 41.4 fL (35.1-46.3); White Blood Cell Count 17.55 K/mm3 (4.00-11.30)
[2024-06-09 19:03] LABS: Hematocrit 57.1 % (37.0-53.0)
[2024-06-09 20:10] LABS: Albumin/Globulin Ratio 0.9 (0.8-1.8); Bilirubin, Total 1.1 mg/dL (0.1-1.0); Bun/Creatinine Ratio 35.6 (12.0-20.0); Creatinine, Blood 1.6 mg/dL (0.60-1.20); Globulin, Blood 3.2 g/dL (2.2-4.0); Potassium, Blood 4.4 mmol/L (3.5-5.5); Total Protein, Blood 6.2 g/dL (6.4-8.2)
== END | disposition home or self-care (01) ==
LOC: LAB SHORT 17:29 → LAB 17:29
PROVIDERS: Hospitalist
DX: N17.0 Acute kidney failure with tubular necrosis (principal)
CPT/HCPCS: 80053; 85025

== ENCOUNTER → 2024-06-17 | Outpatient (CLI) | payer MEDICARE, BC ==
[2024-06-17 19:10] LABS: BASOPHILS ABSOLUTE AUTO 0.05 K/mm3 (0.00-0.23); BASOPHILS PERCENT AUTO 0 % (0-2); EOSINOPHILS ABSOLUTE AUTO 0.18 K/mm3 (0.00-0.68); EOSINOPHILS PERCENT AUTO 2 % (0-6); Hematocrit 47.8 % (37.0-53.0); Hemoglobin 14.8 g/dL (13.5-17.5); IMMATURE GRAN ABSOLUTE AUTO 0.04 K/mm3 (0.00-0.10); IMMATURE GRAN PERCENT AUTO 0 % (0-1); LYMPHOCYTES ABSOLUTE AUTO 0.87 K/mm3 (0.84-5.20); LYMPHOCYTES PERCENT AUTO 8 % (21-46); MONOCYTES ABSOLUTE AUTO 0.71 K/mm3 (0.16-1.47); MONOCYTES PERCENT AUTO 6 % (4-13); Mean Corpuscular HGB 25.6 pg (26.0-34.0); Mean Corpuscular Volume 83 fL (80-100); Mean Platelet Volume 10.7 fL (9.1-12.4); NEUTROPHILS ABSOLUTE AUTO 9.34 K/mm3 (1.96-9.15); NEUTROPHILS PERCENT AUTO 84 % (41-73); Platelet Count 180 K/mm3 (150-400); RDW Coefficient Variation 14.6 % (11.7-14.2); RDW Standard Deviation 43.4 fL (35.1-46.3); Red Blood Cell Count 5.79 M/mm3 (4.30-5.90); White Blood Cell Count 11.19 K/mm3 (4.00-11.30)
[2024-06-17 19:15] LABS: Calcium, Blood 8.9 mg/dL (8.5-10.1); Creatinine, Blood 1.07 mg/dL (0.60-1.20); Potassium, Blood 4.3 mmol/L (3.5-5.5)
== END | disposition home or self-care (01) ==
LOC: LAB 17:35 → LAB SHORT 17:35
PROVIDERS: Hospitalist
DX: N17.0 Acute kidney failure with tubular necrosis (principal)
CPT/HCPCS: 80048; 85025

== ENCOUNTER 2025-04-24 20:52 | Inpatient (IN) | payer MEDICARE, BC ==
[~2025-04-24] VITALS: Ht 177.8 cm; Wt 106.4 kg
[2025-04-24] MEDS ORDERED: Ipratropium/Albuterol SulF 2.5-0.5MG/3 ML Amp INH ONE (21:00)
[2025-04-24 21:06] LABS: pH Blood Venous 7.40 (7.34-7.37)
[2025-04-24 21:09] LABS: BASOPHILS ABSOLUTE AUTO 0.04 K/mm3 (0.00-0.23); BASOPHILS PERCENT AUTO 0 % (0-2); EOSINOPHILS ABSOLUTE AUTO 0.01 K/mm3 (0.00-0.68); EOSINOPHILS PERCENT AUTO 0 % (0-6); Hematocrit 50.1 % (37.0-53.0); Hemoglobin 15.5 g/dL (13.5-17.5); IMMATURE GRAN ABSOLUTE AUTO 0.06 K/mm3 (0.00-0.10); IMMATURE GRAN PERCENT AUTO 0 % (0-1); LYMPHOCYTES ABSOLUTE AUTO 0.66 K/mm3 (0.84-5.20); LYMPHOCYTES PERCENT AUTO 4 % (21-46); MONOCYTES ABSOLUTE AUTO 1.09 K/mm3 (0.16-1.47); MONOCYTES PERCENT AUTO 7 % (4-13); Mean Corpuscular HGB Conc 30.9 g/dL (31.5-36.5); Mean Corpuscular Volume 86 fL (80-100); NEUTROPHILS ABSOLUTE AUTO 13.20 K/mm3 (1.96-9.15); NEUTROPHILS PERCENT AUTO 88 % (41-73); NRBC ABSOLUTE 0.00 K/mm3 (0.00-0.02); NRBC Auto 0.0 /100 WBC (0.0-0.2); Platelet Count 227 K/mm3 (150-400); RDW Coefficient Variation 15.1 % (11.7-14.2); RDW Standard Deviation 47.3 fL (35.1-46.3)
[2025-04-24 21:31] LABS: Alanine Aminotransfer (ALT/SGP 22.0 U/L (12-78); Albumin, Blood 3.5 g/dL (3.4-5.0); Albumin/Globulin Ratio 0.8 (0.8-1.8); Anion Gap 10.0 mmol/L (3-11); Aspartate Aminotrans (AST/SGOT 16.0 U/L (12-37); Bilirubin, Total 1.1 mg/dL (0.1-1.0); Blood Urea Nitrogen 19.0 mg/dL (8-24); CO2, Blood 29.0 mmol/L (21-32); Calcium, Blood 8.8 mg/dL (8.5-10.1); Chloride, Blood 99.0 mmol/L (98-108); Creatinine, Blood 0.89 mg/dL (0.60-1.20); Globulin, Blood 4.2 g/dL (2.2-4.0); Glucose, Blood 133.0 mg/dL (70-99); Magnesium, Blood 1.9 mg/dL (1.6-2.4); Potassium, Blood 4.4 mmol/L (3.5-5.5); Sodium, Blood 134.0 mmol/L (136-145); Total Protein, Blood 7.7 g/dL (6.4-8.2)
[2025-04-24 22:03] LABS: CORONAVIRUS COVID-19 AG Negative (NEGATIVE)
[2025-04-24] MEDS ORDERED: CefTRIAXone Sodium 1,000 MG in NS 100 ML IV ONE (22:10)
[2025-04-24] MEDS ORDERED: Ipratropium/Albuterol SulF 2.5-0.5MG/3 ML Amp INH SCH (23:40)
[2025-04-25] VITALS (7 sets, daily range): BP systolic 107–152; BP diastolic 64–104
[2025-04-25] MEDS ORDERED: Mag Sulfate 1 GM/D5% 100ML 100 ML IV STA (00:26)
[2025-04-25] MEDS ORDERED: NS 250 ML IV PRN (00:50)
[2025-04-25] MEDS ORDERED: NS 0 ML IV ONE (01:16)
[2025-04-25] MEDS ORDERED: LORazepam 2 MG/ML 1ML Injection ONE (01:16)
[2025-04-25 02:31] LABS: BASOPHILS ABSOLUTE AUTO 0.03 K/mm3 (0.00-0.23); BASOPHILS PERCENT AUTO 0 % (0-2); EOSINOPHILS ABSOLUTE AUTO 0.00 K/mm3 (0.00-0.68); EOSINOPHILS PERCENT AUTO 0 % (0-6); Hematocrit 45.3 % (37.0-53.0); Hemoglobin 14.1 g/dL (13.5-17.5); IMMATURE GRAN ABSOLUTE AUTO 0.06 K/mm3 (0.00-0.10); IMMATURE GRAN PERCENT AUTO 0 % (0-1); LYMPHOCYTES ABSOLUTE AUTO 0.79 K/mm3 (0.84-5.20); LYMPHOCYTES PERCENT AUTO 6 % (21-46); MONOCYTES ABSOLUTE AUTO 1.18 K/mm3 (0.16-1.47); MONOCYTES PERCENT AUTO 9 % (4-13); Mean Corpuscular HGB Conc 31.1 g/dL (31.5-36.5); Mean Corpuscular Volume 85 fL (80-100); NEUTROPHILS ABSOLUTE AUTO 11.56 K/mm3 (1.96-9.15); NEUTROPHILS PERCENT AUTO 85 % (41-73); NRBC ABSOLUTE 0.00 K/mm3 (0.00-0.02); NRBC Auto 0.0 /100 WBC (0.0-0.2); Platelet Count 196 K/mm3 (150-400); RDW Coefficient Variation 15.3 % (11.7-14.2); RDW Standard Deviation 47.2 fL (35.1-46.3)
[2025-04-25 02:49] LABS: Magnesium, Blood 1.8 mg/dL (1.6-2.4)
[2025-04-25 02:50] LABS: Alanine Aminotransfer (ALT/SGP 18.0 U/L (12-78); Albumin, Blood 3.1 g/dL (3.4-5.0); Albumin/Globulin Ratio 0.9 (0.8-1.8); Anion Gap 9.0 mmol/L (3-11); Aspartate Aminotrans (AST/SGOT 14.0 U/L (12-37); Bilirubin, Total 1.3 mg/dL (0.1-1.0); Blood Urea Nitrogen 19.0 mg/dL (8-24); CO2, Blood 29.0 mmol/L (21-32); Calcium, Blood 8.9 mg/dL (8.5-10.1); Chloride, Blood 100.0 mmol/L (98-108); Creatinine, Blood 0.83 mg/dL (0.60-1.20); Globulin, Blood 3.6 g/dL (2.2-4.0); Glucose, Blood 124.0 mg/dL (70-99); Potassium, Blood 4.0 mmol/L (3.5-5.5); Sodium, Blood 134.0 mmol/L (136-145); Total Protein, Blood 6.7 g/dL (6.4-8.2)
[2025-04-25] MEDS ORDERED: CefTRIAXone Sodium 1,000 MG in NS 100 ML IV SCH (03:32)
--- NOTE | 2025-04-25 07:26 | NUR ---
SHIFT SUMMARY: PT ARRIVES TO PCU 5 FROM THE ER VIA GURNEY AROUND 0007. PT TRANSFERRED TO HOSPITAL BED X1 ASSIST. PT ORIENTED TO ROOM AND CALL LIGHT. PT IS A&OX4, UNMANNERLY AND VULGAR. VSS ON 8L HFNC, PT BRINGS WITH HIM HIS HOME BIPAP MACHINE. HE TOLERATES IT FOR AN HOUR AT A TIME. TITRATED PT'S OXYGEN UP TO 10-13L OXYGEN VIA HFNC. PT STATES HE WEARS 5L O2 VIA NC CONTINUOUS AT BASELINE, AND HIS BIPAP WHILE HE SLEEPS. AFIB 110-140'S, 160'S WITH EXERTION. DILT GTT INITIATED AND TITRATED PER ORDER. DENIES PAIN. ON A HEART HEALTHY DIET. PT USING URINAL INDEPENDENT AT BEDSIDE. VOIDED SMALL AMOUNTS OF CLEAR GEOVANNI URINE. NO BM THIS SHIFT. BED IN LOWEST POSITION, CALL LIGHT WITHIN REACH. CALLS APPROPRIATELY AND IS ABLE TO ADVOCATE NEEDS EFFECTIVELY.
[2025-04-25] MEDS ORDERED: Lactobacil 2-S.Thermo-Bifido 1 1 Cap PO SCH (09:00)
[2025-04-25] MEDS ORDERED: Furosemide 10 MG / ML 2ML Vial IV SCH (09:00)
[2025-04-25] MEDS ORDERED: CILO100 PO (10:29)
[2025-04-25] MEDS ORDERED: Ventolin5 MG/1 ML INH (11:42)
[2025-04-26 00:20] VITALS: BP 133/86
[2025-04-26 03:28] LABS: BASOPHILS ABSOLUTE AUTO 0.01 K/mm3 (0.00-0.23); BASOPHILS PERCENT AUTO 0 % (0-2); EOSINOPHILS ABSOLUTE AUTO 0.00 K/mm3 (0.00-0.68); EOSINOPHILS PERCENT AUTO 0 % (0-6); Hematocrit 44.3 % (37.0-53.0); Hemoglobin 14.1 g/dL (13.5-17.5); IMMATURE GRAN ABSOLUTE AUTO 0.04 K/mm3 (0.00-0.10); IMMATURE GRAN PERCENT AUTO 0 % (0-1); LYMPHOCYTES ABSOLUTE AUTO 0.25 K/mm3 (0.84-5.20); LYMPHOCYTES PERCENT AUTO 2 % (21-46); MONOCYTES ABSOLUTE AUTO 0.23 K/mm3 (0.16-1.47); MONOCYTES PERCENT AUTO 2 % (4-13); Mean Corpuscular HGB Conc 31.8 g/dL (31.5-36.5); Mean Corpuscular Volume 86 fL (80-100); NEUTROPHILS ABSOLUTE AUTO 10.40 K/mm3 (1.96-9.15); NEUTROPHILS PERCENT AUTO 95 % (41-73); NRBC ABSOLUTE 0.00 K/mm3 (0.00-0.02); NRBC Auto 0.0 /100 WBC (0.0-0.2); Platelet Count 183 K/mm3 (150-400); RDW Coefficient Variation 15.1 % (11.7-14.2); RDW Standard Deviation 46.9 fL (35.1-46.3)
[2025-04-26 03:56] LABS: Anion Gap 7.0 mmol/L (3-11); Blood Urea Nitrogen 26.0 mg/dL (8-24); CO2, Blood 31.0 mmol/L (21-32); Calcium, Blood 8.5 mg/dL (8.5-10.1); Chloride, Blood 99.0 mmol/L (98-108); Creatinine, Blood 0.9 mg/dL (0.60-1.20); Glucose, Blood 170.0 mg/dL (70-99); Potassium, Blood 4.2 mmol/L (3.5-5.5); Sodium, Blood 133.0 mmol/L (136-145)
[2025-04-26 04:17] VITALS: BP 125/77
--- NOTE | 2025-04-26 06:47 | NUR ---
SHIFT SUMMARY: PT IS A&OX4 COOPERATIVE WITH CARE. VSS ON 8L OXYMASK, WEARS HIS HOME BIPAP MACHINE WITH AN 8L BLEED IN WHILE ASLEEP. AFIB 110-120'S. DILT GTT TITRATED FOR HR <110, PERAMETER MET, AND DILT GTT TURNED OFF AT 0245. DENIES PAIN. ON A HEART HEALTHY DIET. PT USING URINAL INDEPENDENTLY AT BEDSIDE. VOIDED SMALL AMOUNTS OF CLEAR GEOVANNI URINE. NO BM THIS SHIFT. BED IN LOWEST POSITION, CALL LIGHT WITHIN REACH. CALLS APPROPRIATELY AND IS ABLE TO ADVOCATE NEEDS EFFECTIVELY.
[2025-04-26 07:18] VITALS: BP 140/98
[2025-04-26 13:21] VITALS: BP 128/77
[2025-04-26 17:18] VITALS: BP 126/85
[2025-04-26] MEDS ORDERED: CefTRIAXone Sodium 1,000 MG in NS 100 ML IV SCH (18:00)
--- NOTE | 2025-04-26 19:25 | NUR ---
SHIFT SUMMARY PATIENT IS AOX4 ABLE TO MAKE NEEDS KNOWN DENIES CP OR SOB. HE IS TOLEATING HIS MEALS AND VOIDING IN THE URINAL. HE MAINAINS O2 SATS GREATER THAN 92% WITH THE OXY MASK BETWEEN 6-8L. HE DESATS ON THE HIFLO NASAL CANNULA UP TO 15L. HE COUGHED UP BLOOD TINGED SPUTUM HOSPITALIST AWARE. VITALS ARE STABLE.
[2025-04-26 19:34] VITALS: BP 139/70
[2025-04-27] VITALS (8 sets, daily range): BP systolic 124–183; BP diastolic 80–108
[2025-04-27 04:42] LABS: BASOPHILS ABSOLUTE AUTO 0.01 K/mm3 (0.00-0.23); BASOPHILS PERCENT AUTO 0 % (0-2); EOSINOPHILS ABSOLUTE AUTO 0.00 K/mm3 (0.00-0.68); EOSINOPHILS PERCENT AUTO 0 % (0-6); Hematocrit 44.7 % (37.0-53.0); Hemoglobin 14.2 g/dL (13.5-17.5); IMMATURE GRAN ABSOLUTE AUTO 0.06 K/mm3 (0.00-0.10); IMMATURE GRAN PERCENT AUTO 0 % (0-1); LYMPHOCYTES ABSOLUTE AUTO 0.37 K/mm3 (0.84-5.20); LYMPHOCYTES PERCENT AUTO 3 % (21-46); MONOCYTES ABSOLUTE AUTO 0.67 K/mm3 (0.16-1.47); MONOCYTES PERCENT AUTO 5 % (4-13); Mean Corpuscular HGB Conc 31.8 g/dL (31.5-36.5); Mean Corpuscular Volume 85 fL (80-100); NEUTROPHILS ABSOLUTE AUTO 13.27 K/mm3 (1.96-9.15); NEUTROPHILS PERCENT AUTO 92 % (41-73); NRBC ABSOLUTE 0.00 K/mm3 (0.00-0.02); NRBC Auto 0.0 /100 WBC (0.0-0.2); Platelet Count 215 K/mm3 (150-400); RDW Coefficient Variation 15.0 % (11.7-14.2); RDW Standard Deviation 46.3 fL (35.1-46.3)
[2025-04-27 05:01] LABS: Anion Gap 6.0 mmol/L (3-11); Blood Urea Nitrogen 40.0 mg/dL (8-24); CO2, Blood 32.0 mmol/L (21-32); Calcium, Blood 8.5 mg/dL (8.5-10.1); Chloride, Blood 104.0 mmol/L (98-108); Creatinine, Blood 0.87 mg/dL (0.60-1.20); Glucose, Blood 152.0 mg/dL (70-99); Potassium, Blood 4.2 mmol/L (3.5-5.5); Sodium, Blood 138.0 mmol/L (136-145)
--- NOTE | 2025-04-27 06:46 | NUR ---
SHIFT SUMMARY: PT IS A&OX4 COOPERATIVE WITH CARE. VSS ON 6L OXYMASK, WEARS HIS BIPAP MACHINE WITH AN 6L BLEED IN WHILE ASLEEP. TITRATED OXYGEN DOWN TO 2L OXYMASK. AFIB 90'S-110'S. COUGHING UP BLOOD TINGED SPUTUM. DENIES PAIN. ON A HEART HEALTHY DIET. PT USING URINAL INDEPENDENTLY AT BEDSIDE. VOIDED SMALL AMOUNTS OF CLEAR GEOVANNI URINE. NO BM THIS SHIFT. BED IN LOWEST POSITION, CALL LIGHT WITHIN REACH. CALLS APPROPRIATELY AND IS ABLE TO ADVOCATE NEEDS EFFECTIVELY.
--- NOTE | 2025-04-27 10:48 | NUR ---
RN NOTE MR MANN HAS AMBULATED INTO THE BR INDEPENDENTLY, +BM THIS AM. 3L OXYMASK CURRENTLY WITH O2 SAT IN THE 90S, REQUIRING 9L HIGH FLOW NC WHEN EATING. UP TO THE CHAIR FOR BREAKFAST THIS AM. AFLUTTER ON TELEMETRY, NO CALLS ON TOMBSTONE POLISHER. VISITED THIS AM AND DR BEAN SPOKE WITH MR AND MS MANN. MR MANN DENIES CHEST PAIN.
--- NOTE | 2025-04-27 17:25 | NUR ---
Shift Summary Mr Patton is orientated x4. Up to chair for meals, using 8-9L high flow nasal canula when eating, but between meals oxygen saturations in the 90s on 2-3L oxymask. He denies any pain. No events on telemetry. Heart rate low 100-110. In chair now, call light in reach.
[2025-04-28 03:17] VITALS: BP 157/89
[2025-04-28 03:58] LABS: BASOPHILS ABSOLUTE AUTO 0.01 K/mm3 (0.00-0.23); BASOPHILS PERCENT AUTO 0 % (0-2); EOSINOPHILS ABSOLUTE AUTO 0.01 K/mm3 (0.00-0.68); EOSINOPHILS PERCENT AUTO 0 % (0-6); Hematocrit 45.3 % (37.0-53.0); Hemoglobin 14.2 g/dL (13.5-17.5); IMMATURE GRAN ABSOLUTE AUTO 0.05 K/mm3 (0.00-0.10); IMMATURE GRAN PERCENT AUTO 0 % (0-1); LYMPHOCYTES ABSOLUTE AUTO 0.28 K/mm3 (0.84-5.20); LYMPHOCYTES PERCENT AUTO 2 % (21-46); MONOCYTES ABSOLUTE AUTO 0.21 K/mm3 (0.16-1.47); MONOCYTES PERCENT AUTO 2 % (4-13); Mean Corpuscular HGB Conc 31.3 g/dL (31.5-36.5); Mean Corpuscular Volume 84 fL (80-100); NEUTROPHILS ABSOLUTE AUTO 10.96 K/mm3 (1.96-9.15); NEUTROPHILS PERCENT AUTO 95 % (41-73); NRBC ABSOLUTE 0.00 K/mm3 (0.00-0.02); NRBC Auto 0.0 /100 WBC (0.0-0.2); Platelet Count 233 K/mm3 (150-400); RDW Coefficient Variation 15.0 % (11.7-14.2); RDW Standard Deviation 45.7 fL (35.1-46.3)
[2025-04-28 04:45] LABS: Anion Gap 7.0 mmol/L (3-11); Blood Urea Nitrogen 46.0 mg/dL (8-24); CO2, Blood 31.0 mmol/L (21-32); Calcium, Blood 8.5 mg/dL (8.5-10.1); Chloride, Blood 103.0 mmol/L (98-108); Creatinine, Blood 0.89 mg/dL (0.60-1.20); Glucose, Blood 143.0 mg/dL (70-99); Potassium, Blood 4.3 mmol/L (3.5-5.5); Sodium, Blood 137.0 mmol/L (136-145)
--- NOTE | 2025-04-28 05:56 | NUR ---
SHIFT SUMMARY PATIENT ALERT AND ORIENTED X4. PATIENT DENIES HAVING ANY PAIN. REPORTS BEING SLIGHTLY SHORT OF BREATH AT BASELINE, WHILE AWAKE WAS ON 2 LITERS O2 VIA OXYMASK, WEARS HOME BIPAP FOR SLEEP. VITAL SIGNS STABLE. NO ACUTE ISSUES NOTED OVERNIGHT. WILL CONTINUE TO MONITOR. CALL LIGHT WITHIN REACH.
[2025-04-28 07:16] VITALS: BP 153/98
[2025-04-28] MEDS ORDERED: Diltiazem HCl 300 MG Cap.CD PO SCH (09:00)
--- NOTE | 2025-04-28 09:28 | NUR ---
AM NOTE this rn assumed care at 0700. vital signs stable. tele afib/aflutter 70s -80s with resting and increases to 100s-110s with activity. patient is on 2l oxymask with spo2 >90%. patient is alert and oriented x4. neuro is intact. perrla. patient is able to make needs known and uses call light appropriately. denies pain, chest pain/pressure or shortness of breath. patient lung sounds upper clear bilaterally and crackles in bilateral bases. see shift assessment for further detials. short in to see patient at 0840 and discussed plan for doing home oxygen evaluation and going home today. patient agreed with this plan. at [address] doing home oxygen evaluation with respiratoy care.
[2025-04-28 11:20] VITALS: BP 146/91
--- NOTE | 2025-04-28 11:22 | NUR ---
update md salmon in the room discussing plan of care with the patient in regards to antibiotic, bleeding-plan to hold eliquisd and pcp will restart, oxygen needs, and heart rate. is at bedside at this time for this conversation. plan for physical and occupational therapy in to see patient to see if they recommend home heatlh
[2025-04-28] MEDS ORDERED: DILT180 PO (13:42)
[2025-04-28] MEDS ORDERED: Cefpodoxime Pr200 MG PO (13:44)
[2025-04-28] MEDS ORDERED: PRED20 PO (13:45)
[2025-04-28] MEDS ORDERED: DOXY100 PO (13:45)
[2025-04-28] MEDS ORDERED: VISBIOME 112.51 EACH PO (13:45)
--- NOTE | 2025-04-28 14:08 | NUR ---
DISCHARGE NOTE This rn went over discharge education, follow up appointments, new medications, stopped medications, and dose increases with the patient. this rn provided paper work that has this information included and educational handouts on new medications and admitting diagnosis. patient verbalized understanding. patient is waiting for at this time in the room.
== END 2025-04-28 14:30 | disposition home or self-care (01) | DRG 196 ==
LOC: ER 20:52 → PCU 23:17
PROVIDERS: Internal Medicine; Student in an Organized Health Care Education/Training Program; ADMIT Student in an Organized Health Care Education/Training Program
PROC: 3E03329 Introduction of Other Anti-infective into Peripheral Vein, Percutaneous Approach (ICD-10-PCS; principal; 2025-04-24)
PROC: 5A0935A Assistance with Respiratory Ventilation, Less than 24 Consecutive Hours, High Flow/Velocity Cannula (ICD-10-PCS; 2025-04-25)
PROC: 5A09357 Assistance with Respiratory Ventilation, Less than 24 Consecutive Hours, Continuous Positive Airway Pressure (ICD-10-PCS; 2025-04-26)
DX: J84.9 Interstitial pulmonary disease, unspecified (principal); J96.21 Acute and chronic respiratory failure with hypoxia; J96.22 Acute and chronic respiratory failure with hypercapnia; J44.1 Chronic obstructive pulmonary disease with (acute) exacerbation; R04.2 Hemoptysis; I10 Essential (primary) hypertension; E78.5 Hyperlipidemia, unspecified; M19.90 Unspecified osteoarthritis, unspecified site; D72.829 Elevated white blood cell count, unspecified; I48.0 Paroxysmal atrial fibrillation; G47.33 Obstructive sleep apnea (adult) (pediatric); I73.9 Peripheral vascular disease, unspecified; Z99.81 Dependence on supplemental oxygen; Z90.49 Acquired absence of other specified parts of digestive tract; Z87.891 Personal history of nicotine dependence; Z98.890 Other specified postprocedural states; Z96.651 Presence of right artificial knee joint; Z79.01 Long term (current) use of anticoagulants; Z79.52 Long term (current) use of systemic steroids; Z79.899 Other long term (current) drug therapy; Z96.643 Presence of artificial hip joint, bilateral; Z96.1 Presence of intraocular lens; Z98.41 Cataract extraction status, right eye; Z88.5 Allergy status to narcotic agent; Z88.8 Allergy status to other drugs, medicaments and biological substances
CPT/HCPCS: 36415; 71045; 71260; 80048; 80053; 82803; 83735; 83880; 84145; 84484; 85025; 87070; 87205; 87428-QW; 93005; 93010; 93306; 94625; 94640; 94664; 94761; 94762; 99285-25; A9270; J0456; J0696; J1160; J1938; J2060; J2919; J3475; J7030; J7050; J7512; Q9967

== ENCOUNTER 2025-06-07 08:16 | Inpatient (IN) | payer MEDICARE, BC ==
[~2025-06-07] VITALS: Ht 182.9 cm; Wt 103.0 kg
[~2025-06-07 08:16] MED LIST changes: +CILO100 PO; +Cefpodoxime Pr200 MG PO; +DILT180 PO; +PRED20 PO; +VISBIOME 112.51 EACH PO; +Ventolin5 MG/1 ML INH
[2025-06-07] MEDS ORDERED: Ipratropium/Albuterol SulF 2.5-0.5MG/3 ML Amp INH ONE (08:30)
[2025-06-07 08:33] LABS: pH Blood Venous 7.39 (7.34-7.37)
[2025-06-07] MEDS ORDERED: Diltiazem HCl 5 MG / ML 5ML Vial IV ONE (08:50)
[2025-06-07 09:04] LABS: BASOPHILS ABSOLUTE AUTO 0.03 K/mm3 (0.00-0.23); BASOPHILS PERCENT AUTO 0 % (0-2); EOSINOPHILS ABSOLUTE AUTO 0.00 K/mm3 (0.00-0.68); EOSINOPHILS PERCENT AUTO 0 % (0-6); Hematocrit 46.8 % (37.0-53.0); Hemoglobin 14.5 g/dL (13.5-17.5); IMMATURE GRAN ABSOLUTE AUTO 0.03 K/mm3 (0.00-0.10); IMMATURE GRAN PERCENT AUTO 0 % (0-1); LYMPHOCYTES ABSOLUTE AUTO 0.64 K/mm3 (0.84-5.20); LYMPHOCYTES PERCENT AUTO 5 % (21-46); MONOCYTES ABSOLUTE AUTO 0.93 K/mm3 (0.16-1.47); MONOCYTES PERCENT AUTO 8 % (4-13); Mean Corpuscular HGB Conc 31.0 g/dL (31.5-36.5); Mean Corpuscular Volume 86 fL (80-100); NEUTROPHILS ABSOLUTE AUTO 10.84 K/mm3 (1.96-9.15); NEUTROPHILS PERCENT AUTO 87 % (41-73); NRBC ABSOLUTE 0.00 K/mm3 (0.00-0.02); NRBC Auto 0.0 /100 WBC (0.0-0.2); Platelet Count 213 K/mm3 (150-400); RDW Coefficient Variation 15.9 % (11.7-14.2); RDW Standard Deviation 49.2 fL (35.1-46.3)
[2025-06-07 09:35] LABS: Alanine Aminotransfer (ALT/SGP 35.0 U/L (12-78); Albumin, Blood 3.3 g/dL (3.4-5.0); Albumin/Globulin Ratio 0.9 (0.8-1.8); Anion Gap 9.0 mmol/L (3-11); Aspartate Aminotrans (AST/SGOT 16.0 U/L (12-37); Bilirubin, Total 1.1 mg/dL (0.1-1.0); Blood Urea Nitrogen 22.0 mg/dL (8-24); CO2, Blood 33.0 mmol/L (21-32); Calcium, Blood 9.4 mg/dL (8.5-10.1); Chloride, Blood 101.0 mmol/L (98-108); Creatinine, Blood 0.95 mg/dL (0.60-1.20); Globulin, Blood 3.8 g/dL (2.2-4.0); Glucose, Blood 135.0 mg/dL (70-99); Potassium, Blood 4.4 mmol/L (3.5-5.5); Sodium, Blood 139.0 mmol/L (136-145); Total Protein, Blood 7.1 g/dL (6.4-8.2)
[2025-06-07 10:00] LABS: Influenza A, PCR NEGATIVE (NEGATIVE); Influenza B, PCR NEGATIVE (NEGATIVE); Resp Syncytial Virus, PCR NEGATIVE (NEGATIVE); SARS-Cov-2 (COVID-19) PCR, MMC NEGATIVE (NEGATIVE)
[2025-06-07] MEDS ORDERED: ELIQUIS5 M2 PO (10:18)
[2025-06-07] MEDS ORDERED: FLU VACC TS2025(65UP)/MF59C/PF 45 MCG/0.5 ML SYRINGE IM SCH (11:50)
[2025-06-07 13:49] VITALS: BP 146/100
[2025-06-07 14:07] VITALS: BP 159/98
[2025-06-07 14:32] VITALS: BP 148/89
--- NOTE | 2025-06-07 15:02 | NUR ---
Dr. Mendoza came to see the patient. Home medication list was provided to the physician, both in [facility] and a physical copy which the patient brought in from home. Cardizem was turned up to 15 cc/hour, but so far the heart rate remains 103-115 bpm, still atrial fibrillation.
[2025-06-07 15:07] VITALS: BP 141/109
[2025-06-07 17:00] LABS: Source, Urine Clean Catch
[2025-06-07 17:12] LABS: Bilirubin, Urine Neg (Neg); Color, Urine Yellow (P-Yellow); Glucose Qualitative, Urine 2+ (Neg); Ketones, Urine 3+ (Neg); Leukocyte Esterase, Urine 1+ (Neg); Protein, Urine 3+ (Neg); Specific Gravity, Urine 1.025 (1.003-1.022); Urobilinogen, Urine 1+ (Normal)
[2025-06-07 17:23] LABS: Red Blood Cells, Urine 0-2 /hpf (0-2)
--- NOTE | 2025-06-07 17:29 | NUR ---
SHIFT SUMMARY: PT A/O X4, ABLE TO MAKE NEEDS KNOWN. STRENGTH EQUAL BILATERALLY. SBA IN ROOM DUE TO SOB, WEAKNESS, LINES, AND CORDS. PT ON 5L NC, THIS IS HIS BASELINE. SATS >92%, PT C/O SOB WITH ANY EXERTION. BROUGHT IN BIPAP FOR NOC USE. PT AFIB 100-110s, DENIES CHEST PAIN/PRESSURE. CARDIZEM DRIP AT 15MG/HR. OTHER VSS. PT ABLE TO VOID USING URINAL INDEP. URINE SAMPLE SENT TO LAB PER ORDER. AT BEDSIDE THIS AFTERNOON, DISCUSSEDA ADMISSION AND CODE STATUS WITH PT, AWAITING NEW ORDERS FROM . PT CURRENTLY LYING IN BED, CALL WITHIN REACH.
[2025-06-07] MEDS ORDERED: Ipratropium/Albuterol SulF 2.5-0.5MG/3 ML Amp INH SCH (18:10)
[2025-06-07] MEDS ORDERED: CefTRIAXone Sodium 1,000 MG in NS 100 ML IV SCH (18:30)
[2025-06-07] MEDS ORDERED: Albuterol 2.5 MG/3 ML VIAL INH PRN (18:30)
[2025-06-07 19:33] VITALS: BP 137/79
--- NOTE | 2025-06-07 21:20 | NUR ---
ASSUMPTION OF CARE ASSUMED CARE OF PT AT [facility] 1900. PT AOX4. RESTING COMFORTABLY IN BED. CARDIZEM GTT RUNNING AT 15MG/HR. PT TOLERATING WELL. VSS. HOURLY BP. PT DENIES CHEST PAIN/PRESSURE. PT DENIES SOB AT THIS TIME. CALL LIGHT WITHIN REACH AND PT ABLE TO MAKE ALL NEEDS KNOWN.
[2025-06-07 23:25] VITALS: BP 134/99
[2025-06-08] VITALS (7 sets, daily range): BP systolic 111–130; BP diastolic 71–90
[2025-06-08 03:46] LABS: Hematocrit 45.3 % (37.0-53.0); Hemoglobin 14.1 g/dL (13.5-17.5); Mean Corpuscular HGB Conc 31.1 g/dL (31.5-36.5); Mean Corpuscular Volume 84 fL (80-100); NRBC ABSOLUTE 0.00 K/mm3 (0.00-0.02); NRBC Auto 0.0 /100 WBC (0.0-0.2); Platelet Count 206 K/mm3 (150-400); RDW Coefficient Variation 15.9 % (11.7-14.2); RDW Standard Deviation 48.5 fL (35.1-46.3)
[2025-06-08 04:22] LABS: Anion Gap 8.0 mmol/L (3-11); Blood Urea Nitrogen 27.0 mg/dL (8-24); CO2, Blood 31.0 mmol/L (21-32); Calcium, Blood 9.4 mg/dL (8.5-10.1); Chloride, Blood 100.0 mmol/L (98-108); Creatinine, Blood 0.81 mg/dL (0.60-1.20); Glucose, Blood 144.0 mg/dL (70-99); Potassium, Blood 3.9 mmol/L (3.5-5.5); Sodium, Blood 135.0 mmol/L (136-145); Thyroid Stimulating Hormone 0.558 uIU/mL (0.360-4.800)
--- NOTE | 2025-06-08 05:11 | NUR ---
SHIFT SUMMARY PT HR 85-100S THIS SHIFT. DECREASED CARDIZEM GTT TO 10MG/HR. VSS. 5L O2 VIA NC. URINAL AT BEDSIDE AND PT ABLE TO USE INDEPENDENTLY. AOX4 AND PT ABLE TO MAKE ALL NEEDS KNOWN. CALL LIGHT WITHIN REACH AND PT CALLS APPROPRIATELY FOR ASSISTANCE WHEN NEEDED. NO C/O CHEST PAIN/PRESSURE THIS SHIFT. NO C/O SOB THIS SHIFT.
[2025-06-08] MEDS ORDERED: Diltiazem HCl 180 MG Cap.CD PO SCH (08:00)
--- NOTE | 2025-06-08 09:45 | NUR ---
RUN OF SVT AT 0828 THIS RN AND PT'S PCT WALKED INTO THE ROOM TO REPOSITION THE PT. WHILE IN THE ROOM THE PT WAS RESTING IN THE BED AND JUMPED INTO SVT 160'S. ASYMPTOMATIC. THIS RN HAD THE PT DO THE VALSALVA MANEUVER WITH A SYRINGE AND HR DROPPED TO 140'S. NO MEDICATIONS IN THE EMAR. THIS RN CALLED DR. ROGEL AND AT 0838 THE PT WENT BACK TO ST 100'S. DR. ROGEL STARTED THE PT ON PO METRPOLOL PER EMAR. SEE NOTES FOR UPDATES.
--- NOTE | 2025-06-08 18:55 | NUR ---
SHIFT SUMMARY PT IS A&0 X4, COOPERATIVE W/ CARE, AND ABLE TO EXPRESS NEEDS. TRANSFERS WITH 1 AST. PT TITRATED BETWEEN 5-9 LITERS O2 NC, WITH 5 BEING HIS BASELINE AT REST AND INCREASES WITH DESATURATION CAUSED BY ACTIVITY. PT DROPPED LOW THE 60s IN SATURATION BUT RAISED BACK UP TO 90s WITHIN 1-2 MINUTES.
--- NOTE | 2025-06-08 21:30 | NUR ---
ASSUMPTION OF CARE ASSUMED CARE OF PT AT APPROXIMATELY 1900. PT REPOSITIONED IN BED. ON 3L O2 VIA NC. SWITCHED TO BIPAP AFTER MEDICATION ADMINISTRATION PER EMAR. PT AOX2, ABLE TO STATE NAME AND , CITY AND STATE. VSS. NO C/O CHEST PAIN/PRESSURE. NO C/O SOB. CALL LIGHT WITHIN REACH. PT CONTINUES TO BE LETHARGIC.
--- NOTE | 2025-06-08 21:36 | NUR ---
ASSUMPTION OF CARE ASSUMED CARE OF PT AT APPROXIMATELY 1900. PT SITTING UP IN RECLINER WATCHING TV. PT ON 5L O2 VIA NC. NO C/O CP/PRESSURE. NO C/O SOB. PT REQUIRES O2 INCREASE TO 7-8L WHILE AMBULATING D/T DESATTING. VSS. PT AOX4. CALL LIGHT WITHIN REACH. PT ABLE TO MAKE ALL NEEDS KNOWN AND CALLS APPROPRIATELY FOR ASSISTANCE WHEN NEEDED.
[2025-06-09 03:30] VITALS: BP 112/77
--- NOTE | 2025-06-09 06:14 | NUR ---
SHIFT SUMMARY PT AOX4. HR 90S-110S. DESATTED WHILE SLEEPING WITH CPAP ON. MASK HAD BECOME DISPLACED. NO C/O SOB. PT SWITCHED TO 5L VIA NC. NO FURTHER ISSUES FOR REMAINDER OF SHIFT. NO C/O CP/PRESSURE THIS SHIFT. VSS. CALL LIGHT WITHIN REACH AND PT CALLS APPROPRIATELY. ABLE TO MAKE ALL NEEDS KNOWN.
[2025-06-09 08:12] VITALS: BP 128/69
[2025-06-09 09:52] LABS: Anion Gap 8.0 mmol/L (3-11); Blood Urea Nitrogen 33.0 mg/dL (8-24); CO2, Blood 34.0 mmol/L (21-32); Calcium, Blood 9.5 mg/dL (8.5-10.1); Chloride, Blood 98.0 mmol/L (98-108); Creatinine, Blood 0.89 mg/dL (0.60-1.20); Glucose, Blood 176.0 mg/dL (70-99); Potassium, Blood 3.7 mmol/L (3.5-5.5); Sodium, Blood 136.0 mmol/L (136-145)
[2025-06-09 11:53] VITALS: BP 113/87
--- NOTE | 2025-06-09 12:00 | NUR ---
MORNING SUMMARY THE PT HAS BEEN A&OX4, COOPERATIVE WITH CARE, 1P ASSIST FOR TX. ON TELE HE HAS BEEN AFIB 100'S-110'S. BP STABLE. MEDICATIONS PER EMAR. THE PT HAS BEEN BETWEEN 5-9L THIS SHIFT. BASELINE 5LNC. HE CONTINUES TO DESATURATE WITH ANY ACTIVITY. HOME O2 EVALAUTION ORDERED FROM DR. HOLLOWAY. POSSIBLE DISCHARGE THIS AFTERNOON. SEE NOTES FOR UPDATES.
--- NOTE | 2025-06-09 14:25 | NUR ---
HOME EVLAUATION COMPLETED BY MAURICIO BELTRÁN THE PT IS REQUIRING 12L W/ OXYMASK FOR ACTIVITY AND THE PT NEEDS TO TAKE BREAKS. AT REST HE NEEDS 6L NC/OXYMASK. CASE MANAGMENT UPDATED TO COLLABERATE WITH RADHA FOR OXYGEN CHANGES. ALSO, THIS RN CALLED DR. HOLLOWAY WITH RESULTS/CHANGES FROM OXYGEN NEEDS AT BASELINE. DR. EUBANKS, PULMONOLOGY, CONSULTED. DR. EUBANKS IS ALSO THIS PATIENTS PROVIDER OUTPT. PALLIATIVE CARE CONSULTED WELL. SEE NOTES FOR ANY UPDATES .
[2025-06-09 15:12] VITALS: BP 123/74
[2025-06-09] MEDS ORDERED: DILTIAZEM 24HR360 M2 PO (17:09)
[2025-06-09] MEDS ORDERED: DOXY100 PO (17:10)
[2025-06-09] MEDS ORDERED: PROBIOTICS1 EACH PO (17:11)
[2025-06-09] MEDS ORDERED: CEFU500T30 PO (17:11)
[2025-06-09] MEDS ORDERED: PRED20 PO (17:12)
[2025-06-09] MEDS ORDERED: STIOLTO RESPIMAT4 G1 INH (17:13)
[2025-06-09 17:19] VITALS: BP 118/83
--- NOTE | 2025-06-09 17:46 | NUR ---
DR. EUBANKS SAW THE PT AND CLEARED HIM FOR DISCHARGE. THE PT HAS A PULMONOLOGY APT NEXT WEEK. THE PT DISCHARGED ABOUT 174. ALL BELONGINGS WITH THE PT. MEDICAITONS FAXED TO [facility]. IV'S IN THE LAC AND R WRIST WERE TAKEN OUT AND COBAN IN PLACE. RADHA DROPPED OFF NEW OXYGEN AT THE PT'S HOME AND TANKS OF OXYGEN TO DISCHARGE WITH. THE PT DID HAVE HIS HOME CPAP MACHINE AND PHONE AT DISCHARGE. PT'S NEIGHBOR IS PICKING HIM UP AT PATIENT ENTRENCE. THE PT REFUSES ANY HOME HEALTH, INSIDE SALES ADMINISTRATOR DISCUSSED IT WITH THE PT. NO FURTHER NOTES.
== END 2025-06-09 17:45 | disposition home health service (06) | DRG 308 ==
LOC: ER 08:16 → PCU 11:46
PROVIDERS: Student in an Organized Health Care Education/Training Program; ADMIT Internal Medicine
PROC: 5A09357 Assistance with Respiratory Ventilation, Less than 24 Consecutive Hours, Continuous Positive Airway Pressure (ICD-10-PCS; principal; 2025-06-07)
PROC: 3E03329 Introduction of Other Anti-infective into Peripheral Vein, Percutaneous Approach (ICD-10-PCS; 2025-06-07)
DX: I48.0 Paroxysmal atrial fibrillation (principal); I50.33 Acute on chronic diastolic (congestive) heart failure; J96.11 Chronic respiratory failure with hypoxia; Z66 Do not resuscitate; G47.33 Obstructive sleep apnea (adult) (pediatric); J84.10 Pulmonary fibrosis, unspecified; I11.0 Hypertensive heart disease with heart failure; K21.9 Gastro-esophageal reflux disease without esophagitis; E78.5 Hyperlipidemia, unspecified; J44.89 Other specified chronic obstructive pulmonary disease; I73.9 Peripheral vascular disease, unspecified; Z96.651 Presence of right artificial knee joint; Z96.643 Presence of artificial hip joint, bilateral; Z79.01 Long term (current) use of anticoagulants; Z99.81 Dependence on supplemental oxygen; Z88.5 Allergy status to narcotic agent; Z79.52 Long term (current) use of systemic steroids; Z87.891 Personal history of nicotine dependence; Z91.148 Patient's other noncompliance with medication regimen for other reason
CPT/HCPCS: 36415; 71046; 80048; 80053; 81001; 82803; 83880; 84145; 84439; 84443; 84481; 85025; 85027; 87086; 87637; 93005; 93010; 94640; 94761; 94762; 96365; 96375; 96376; 99285-25; A9270; J0696; J1938; J2919